=== PATIENT | male | born 1970 | race Caucasian/White ===

== ENCOUNTER 2018-07-05 23:58 | Emergency (ER) | payer OTHER ==
--- NOTE | 2018-07-06 | EDM.PDOC ---
ED HPI GENERAL MEDICAL PROBLEM - General Chief Complaint: Upper Extremity Injury/Pain Stated Complaint: ARM HURT Time Seen by Provider: 07/06/18 00:00 Source of Information: Reports: Patient - History of Present Illness INITIAL COMMENTS - FREE TEXT/NARRATIVE: HISTORY AND PHYSICAL: History of present illness: [Patient presents from an area drilling rate Currently his right arm was wrapped up in the drill pipe, he presents with 10 out of 10 pain obvious deformity of the right forearm's head injury or loss of consciousness Complains of pain and nausea no vomiting chills sweats no fever chest pain shortness breath headache dizziness or palpitation no bowel or urine symptoms ] Review of systems: As per history of present illness and below otherwise all systems reviewed and negative. Past medical history: As per history of present illness and as reviewed below otherwise noncontributory. Surgical history: As per history of present illness and as reviewed below otherwise noncontributory. Social history: No reported history of drug or alcohol abuse. Family history: As per history of present illness and as reviewed below otherwise noncontributory. Physical exam: HEENT: Atraumatic, normocephalic, pupils reactive, negative for conjunctival pallor or scleral icterus, mucous membranes moist, throat clear, neck supple, nontender, trachea midline. Lungs: Clear to auscultation, breath sounds equal bilaterally, chest nontender. Heart: S1S2, regular, negative for clicks, rubs, or JVD. Abdomen: Soft, nondistended, nontender. Negative for masses or hepatosplenomegaly. Negative for costovertebral tenderness. Pelvis: Stable nontender. Genitourinary: Deferred. Rectal: Deferred. Extremities: Atraumatic, negative for cords or calf pain. Neurovascular unremarkable. Right upper extremity no pain with head movement tender along the distal humerus obvious deformity of the forearm, neurovascularly intact right upper extremity no open lesion Neuro: Awake, alert, oriented. Cranial nerves II through XII unremarkable. Cerebellum unremarkable. Motor and sensory unremarkable throughout. Exam nonfocal. Diagnostics: [Chest 1 view Humerus right Forearm right] Therapeutics: [Morphine 2 mg IV Dilaudid 1 mg IV Zofran 8 mg IV Patient is transferred to [facility] Dr. Joaquin in the ER has accepted transfer ] Impression: []Displaced fractures distal third of radius and ulna Disruption of the radial ulnar joint distally Right upper extremity is neurovascularly intact Definitive disposition and diagnosis as appropriate pending reevaluation and review of above. right arm Pain Score (Numeric/FACES): 10 - Related Data Allergies Allergy/AdvReac Type Severity Reaction Status Date / Time No Known Allergies Allergy Verified 07/06/18 00:05 Home Meds: Home Meds . [No Known Home Meds] 07/06/18 [History] Review of Systems - Review of Systems Review Of Systems: See Below ED EXAM, GENERAL - Physical Exam Exam: See Below Course - Vital Signs Last Recorded V/S: Last Vital Signs Temp 97.6 F 07/05/18 23:59 Pulse 97 07/05/18 23:59 Resp 20 07/05/18 23:59 BP 122/74 07/05/18 23:59 Pulse Ox 100 07/05/18 23:59 - Orders/Labs/Meds Orders: Active Orders 24 hr Category Date Time Status Chest 1V Frontal [CR] Stat Exams 07/05/18 23:59 Taken Forearm 2V Rt [CR] Stat Exams 07/05/18 23:59 Taken Humerus Rt [CR] Stat Exams 07/06/18 00:09 Taken Labs: Laboratory Tests 07/05/18 07/05/18 Range/Units 23:55 23:55 WBC 12.24 H (4.0-11.0) K/uL RBC 4.55 (4.50-5.90) M/uL Hgb 13.7 (13.0-17.0) g/dL Hct 40.2 (38.0-50.0) % MCV 88.4 (80.0-98.0) fL MCH 30.1 (27.0-32.0) pg MCHC 34.1 (31.0-37.0) g/dL RDW Std Deviation 38.7 (28.0-62.0) fl RDW Coeff of Amparo 12 (11.0-15.0) % Plt Count 223 (150-400) K/uL MPV 9.50 (7.40-12.00) fL Neut % (Auto) 41.0 L (48.0-80.0) % Lymph % (Auto) 50.0 H (16.0-40.0) % Trigg % (Auto) 6.8 (0.0-15.0) % Eos % (Auto) 2.0 (0.0-7.0) % Baso % (Auto) 0.2 (0.0-1.5) % Neut # (Auto) 5.0 (1.4-5.7) K/uL Lymph # (Auto) 6.1 H (0.6-2.4) K/uL Trigg # (Auto) 0.8 (0.0-0.8) K/uL Eos # (Auto) 0.3 (0.0-0.7) K/uL Baso # (Auto) 0.0 (0.0-0.1) K/uL Sodium 137 (136-148) mmol/L Potassium 3.2 L (3.5-5.1) mmol/L Chloride 101 (98-107) mmol/L Carbon Dioxide 26.7 (21.0-32.0) mmol/L BUN 14 (7.0-18.0) mg/dL Creatinine 1.2 (0.8-1.3) mg/dL Est Cr Clr Drug Dosing 69.41 mL/min Estimated GFR (MDRD) > 60.0 ml/min Glucose 150 H (74-106) mg/dL Calcium 9.1 (8.5-10.1) mg/dL Total Bilirubin 0.3 (0.2-1.0) mg/dL AST 23 (15-37) IU/L ALT 20 (14-63) IU/L Alkaline Phosphatase 84 (46-116) U/L Total Protein 7.7 (6.4-8.2) g/dL Albumin 4.0 (3.4-5.0) g/dL Globulin 3.7 H (2.0-3.5) g/dL Albumin/Globulin Ratio 1.1 L (1.3-2.8) Meds: Medications Discontinued Medications Generic Name Dose Route Start Last Admin Trade Name Freq PRN Reason Stop Dose Admin Hydromorphone HCl 1 mg 07/06/18 00:06 07/06/18 00:14 Dilaudid IVPUSH 07/06/18 00:07 1 mg ONETIME ONE Administration Hydromorphone HCl 1 mg 07/06/18 01:24 07/06/18 01:29 Dilaudid IVPUSH 07/06/18 01:25 Not Given ONETIME ONE Hydromorphone HCl Confirm 07/06/18 01:25 07/06/18 01:29 Dilaudid Administered 07/06/18 01:26 Not Given Dose 1 mg .ROUTE .STK-MED ONE Hydromorphone HCl 1 mg 07/06/18 01:28 Dilaudid IVPUSH 07/06/18 01:29 ONETIME ONE Hydromorphone HCl 1 mg 07/06/18 01:29 07/06/18 01:30 Dilaudid IVPUSH 07/06/18 01:30 1 mg ONETIME ONE Administration Morphine Sulfate 2 mg 07/06/18 00:02 07/05/18 23:58 Morphine IVPUSH 07/06/18 00:03 2 mg ONETIME ONE Administration Ondansetron HCl 8 mg 07/06/18 00:07 07/06/18 00:11 Zofran IVPUSH 07/06/18 00:08 8 mg ONETIME ONE Administration Departure - Departure Time of Disposition: 01:32 Disposition: DC/Tfer to Acute Hospital 02 Condition: Fair Clinical Impression: Fracture of radius and ulna - Discharge Information Forms: ED Department Discharge - My Orders Last 24 Hours: My Active Orders 07/05/18 23:59 Chest 1V Frontal [CR] Stat Forearm 2V Rt [CR] Stat 07/06/18 00:09 Humerus Rt [CR] Stat - Assessment/Plan Last 24 Hours: My Active Orders 07/05/18 23:59 Chest 1V Frontal [CR] Stat Forearm 2V Rt [CR] Stat 07/06/18 00:09 Humerus Rt [CR] Stat
[2018-07-06] MEDS ORDERED: Morphine 2 MG/ML Syringe IVPUSH ONE (00:02)
[2018-07-06] MEDS ORDERED: HYDROmorphone 2 MG/ML SDV IVPUSH ONE ×2 (00:06→01:24)
[2018-07-06] MEDS ORDERED: Ondansetron 4 MG/2 ML SDV IVPUSH ONE (00:07)
[2018-07-06 00:41] LABS: CHLORIDE,CL 101 mmol/L (98-107); SODIUM,NA 137 mmol/L (136-148)
[2018-07-06] MEDS ORDERED: HYDROmorphone 1 MG/ML Syringe ONE (01:25)
[2018-07-06] MEDS ORDERED: HYDROmorphone 2 MG/ML Syringe IVPUSH ONE (01:28)
[2018-07-06] MEDS ORDERED: HYDROmorphone 1 MG/ML Syringe IVPUSH ONE (01:29)
--- NOTE | 2018-07-08 11:14 | CR ---
EXAM DATE: 07/05/18 PATIENT'S AGE: 48 Patient: PIERRE FLETCHER Facility: [place], [place] Site . Site : 1970 Study: XRay Extremity Right [id number]/22/2018 12:33:43 AM Ordering Physician: Cristi Russell Final Report: INDICATION: Trauma TECHNIQUE: Two views right forearm COMPARISON: None FINDINGS: Bones: Displaced fractures of the distal 3rd of the radius and ulna. Joint spaces: Disruption of the distal radial ulnar joint. Soft tissues: Soft tissue edema dorsal to the fractures of the radius and ulna. IMPRESSION: Displaced fractures of the distal 3rd of the radius and ulna with disruption of the distal radial ulnar joint. Soft tissue edema dorsal to the fractures. Dictated by Ranjit Paez MD @ 07/06/2018 1:13:10 AM Dictated by: Ranjit Paez MD @ 07/06/2018 01:13:47 (Electronic Signature) Report Signed by Proxy. GAMA
--- NOTE | 2018-07-08 11:14 | CR ---
EXAM DATE: 07/05/18 PATIENT'S AGE: 48 Patient: PIERRE FLETCHER Facility: [place], [place] Site . Site : 1970 Study: XRay Extremity Right [id number]/22/2018 12:33:14 AM Ordering Physician: Cristi Russell Final Report: INDICATION: Trauma TECHNIQUE: Single AP view of the right humerus COMPARISON: None FINDINGS: Bones: Alignment is normal. No fractures or bone lesions. Joint spaces: Overlap of the humeral head and glenoid.. Soft tissues: Unremarkable. IMPRESSION: Overlap of the humeral head and glenoid. If dislocation/subluxation at the glenohumeral joint is clinically suspected, then Y or axillary view would be recommended. No fractures. Dictated by Ranjit Paez MD @ 07/06/2018 1:15:17 AM Dictated by: Ranjit Paez MD @ 07/06/2018 01:15:24 (Electronic Signature) Report Signed by Proxy. GAMA
--- NOTE | 2018-07-08 11:15 | CR ---
EXAM DATE: 07/05/18 PATIENT'S AGE: 48 Patient: PIERRE FLETCHER Facility: [place], [place] Site . Site : 1970 Study: XRay Chest [id number]/22/2018 12:34:06 AM Ordering Physician: Cristi Russell Final Report: INDICATION: injury TECHNIQUE: Chest 1 view. COMPARISON: None. FINDINGS: Cardiovascular and mediastinum: Heart size and vasculature are normal in caliber and appearance. Mediastinum is within normal limits. Lungs and pleural space: Lungs are clear. No sign of infiltrate or mass. No sign of pleural effusion. No pneumothorax. Bones and soft tissues: No significant findings. IMPRESSION: Unremarkable chest. Dictated by: Ranjit Paez MD @ 07/06/2018 01:16:00 (Electronic Signature) Report Signed by Proxy. [facility]ITALWagner
== END 2018-07-06 02:50 ==
LOC: MW.ED 23:58
DX: S52.501A Unspecified fracture of the lower end of right radius, initial encounter for closed fracture (principal); S52.601A Unspecified fracture of lower end of right ulna, initial encounter for closed fracture; W22.8XXA Striking against or struck by other objects, initial encounter
CPT/HCPCS: 36415; 71045; 73060; 73090; 80053; 85025; 96374; 96375; 96376; 99285; J1170; J2270; J2405